=== PATIENT | male | born 1975 | race Caucasian/White ===

== ENCOUNTER 2017-02-05 18:46 | Emergency (ER) | payer OTHER ==
[~2017-02-05] VITALS: Ht 177.8 cm; Wt 167.4 kg
[~2017-02-05 18:46] MED LIST: LEVO.05
[2017-02-05 18:51] VITALS: BP 170/107; PULSE 80; RESP 15; TEMP 98.2; O2SAT 99
[2017-02-05] MEDS ORDERED: SYNT25TA PO (19:12)
--- NOTE | 2017-02-05 19:12 | PD ---
HPI Chief Complaint: Pain: Acute or Chronic Time Seen by Provider: 18:59 Travel History International Travel<30 days: No Contact w/Intl Traveler<30days: No Traveled to known affect area: No History of Present Illness HPI The patient is a 41-year-old male who states he hit the back of his right leg in the calf on . It began to swell and turn red and the patient went to his primary care physician who prescribed clindamycin and Medrol Dosepak. The patient states the pain has increased slightly and has moved around to the front of the leg and also proximally on the medial aspect of the knee. He denies any fever, shortness of breath, chest pain, hemoptysis, tachycardia or syncopal or near syncopal spells. A Doppler ultrasound was ordered for this patient by his primary care physician but the patient felt this was not timely or convenient enough and so he came to the emergency department for an ultrasound. He has no previous history of clots in his legs or pulmonary emboli. The patient was also told to take 325 mg of aspirin until he got his ultrasound done. PFSH Past Medical History Thyroid Disease: Yes Social History Alcohol Use: Yes (2 MONTH) Tobacco Use: No Substance Use: No Allergies-Medications (Allergen,Severity, Reaction): Coded Allergies: No Known Allergies (Verified , 02/05/17) Reported Meds & Prescriptions Reported Meds & Active Scripts Active Reported Aspirin 325 Mg Tab 325 Mg PO DAILY Clindamycin (Clindamycin HCl) 75 Mg Cap 75 Mg PO Q6H Pantoprazole (Pantoprazole Sodium) 20 Mg Tab 20 Mg PO DAILY Synthroid (Levothyroxine Sodium) 25 Mcg Tab 25 Mcg PO DAILY Review of Systems Except as stated in HPI: all other systems reviewed are Neg Physical Exam Narrative GENERAL: The patient is alert, obese, oriented 3 in minimal apparent distress with his right lower leg pain. His vital signs show blood pressure 170/107 but otherwise normal. SKIN: Focused skin assessment warm/dry. HEAD: Atraumatic. Normocephalic. EYES: Pupils equal and round. No scleral icterus. No injection or drainage. ENT: No nasal bleeding or discharge. Mucous membranes pink and moist. NECK: Trachea midline. No JVD. CARDIOVASCULAR: Regular rate and rhythm. No murmur appreciated. RESPIRATORY: No accessory muscle use. Clear to auscultation. Breath sounds equal bilaterally. GASTROINTESTINAL: Abdomen soft, non-tender, nondistended. Hepatic and splenic margins not palpable. MUSCULOSKELETAL: No obvious deformities. No clubbing. No cyanosis. No edema. There is swelling of the right leg and the right leg is slightly larger than the left leg but no edema is present. There is no calf vein tenderness present and no cord is palpated in the calf. Homans sign is negative. NEUROLOGICAL: Awake and alert. No obvious cranial nerve deficits. Motor grossly within normal limits. Normal speech. PSYCHIATRIC: Appropriate mood and affect; insight and judgment normal. Data Data Last Documented VS Vital Signs Date Time Temp Pulse Resp B/P (MAP) Pulse Ox O2 Delivery O2 Flow Rate FiO2 02/05/17 19:38 85 18 159/89 (112) 99 Room Air 02/05/17 18:51 98.2 Orders Orders Us Leg Venous Doppler (02/05/17 19:06) [facility] Medical Decision Making Medical Screen Exam Complete: Yes Emergency Medical Condition: Yes Medical Record Reviewed: Yes Interpretation(s) The ultrasound of the right leg is negative for DVT. Differential Diagnosis Cellulitis, DVT, congestive heart failure-highly unlikely, lymph duct constriction due to obesity Narrative Course The patient appears to have a mild cellulitis. I will add Bactrim DS to his regimen and he is told to elevate his right leg above his heart. Additional Instructions: As we discussed, elevate your right leg above your heart. The antibiotic is one tablet twice daily for 10 days. Med/Other Pt SpecificInfo: Prescription(s) given Scripts Sulfamethoxazole-Trimethoprim (Bactrim DS) 800-160 Mg Tab 1 TAB PO BID for Infection, #20 TAB 0 Refills Prov: Armand Shay MD 02/05/17 Disposition: 01 DISCHARGE HOME Condition: Stable Armand Shay MD Feb 05, 2017 19:12
[2017-02-05] MEDS ORDERED: PANT20TA2 PO (19:13)
[2017-02-05] MEDS ORDERED: CLIN75CA PO (19:13)
[2017-02-05] MEDS ORDERED: ASPI325T PO (19:14)
[2017-02-05 19:38] VITALS: BP 159/89; PULSE 85; RESP 18; O2SAT 99
--- NOTE | 2017-02-05 20:12 | RADRPT ---
EXAM DATE/TIME: 02/05/2017 19:47 [place] COMPARISON: No previous studies available for comparison. INDICATIONS : Right leg swelling. MEDICAL HISTORY : Gastroesophageal reflux disease. Thyroid disease. SURGICAL HISTORY : Left arm surgery. ENCOUNTER: Initial ACUITY: 4 - 6 days PAIN SCORE: 2/10 LOCATION: Right leg. TECHNIQUE: Venous ultrasound of the leg was performed from the inguinal ligament to the proximal calf. Real-benjy e, color Doppler and spectral tracing, compression and augmentation techniques were used. FINDINGS: There is normal compressibility of the deep venous system from the inguinal region to the proximal ca lf. No echogenic clot is seen in the lumen of the common femoral, femoral, popliteal, and posterior tibial veins. There is a normal response of the venous system to proximal and distal augmentation an d respiration. CONCLUSION: No DVT of the right lower extremity. Ryan Guo MD on February 05, 2017 at 20:10 Board Certified Radiologist. This report was verified electronically.
[2017-02-05] MEDS ORDERED: BACT800T5 PO (20:19)
[2017-02-05 20:54] VITALS: BP 142/76; TEMP 98.9
== END 2017-02-05 20:57 | disposition home or self-care (01) ==
LOC: PHED 18:46
DX: L03.115 Cellulitis of right lower limb (principal); E07.9 Disorder of thyroid, unspecified
CPT/HCPCS: 93971; 99284